=== PATIENT | female | born 1990 | race Caucasian/White ===

== ENCOUNTER 2019-10-03 10:55 | Emergency (ER) | payer BC, MEDICAID ==
[~2019-10-03] VITALS: Ht 170.2 cm; Wt 111.0 kg
[2019-10-03] MEDS ORDERED: fentaNYL/PF 50MCG/1 ML 2ML syringe IV ONE ×2 (11:30→17:10)
[2019-10-03] MEDS ORDERED: ondansetron/PF 4mg/2ml inj IV ONE ×5 (11:30→21:25)
[2019-10-03 11:36] LABS: BASOPHILS % (AUTO) 0.3 % (0-1); EOSINOPHILS % (AUTO) 0.4 % (0-6); HEMOGLOBIN 13.4 g/dl (12.0-16.0); LYMPHOCYTES # (AUTO) 1.6 X10'3 (1.1-4.8); LYMPHOCYTES % (AUTO) 12.6 % (21-51); MEAN CORPUSCULAR HGB CONC 33.5 g/dL (33.0-36.5); MEAN CORPUSCULAR VOLUME 92.4 FL (78-98); MEAN PLATELET VOLUME 6.9 FL (7.4-10.4); MONOCYTES # (AUTO) 0.5 X10'3 (0-0.9); MONOCYTES % (AUTO) 3.7 % (2-12); NEUTROPHILS # (AUTO) 10.4 X10'3 (1.8-7.7); PLATELET COUNT 332 X10'3 (140-440); RED BLOOD COUNT 4.34 X10'6 (4.20-5.60); RED CELL DISTRIBUTION WIDTH 14.4 % (11.5-14.5); WHITE BLOOD COUNT 12.5 X10'3 (4.5-11.0)
[2019-10-03] MEDS ORDERED: normal saline 1000ML IV soln IVB ONE (11:45)
[2019-10-03 11:48] LABS: CLARITY,URINE SLIGHTLY CLOUDY (Clear); COLOR,URINE AMBER (Yellow); GLUCOSE, URINE 100 mg/dl (Neg); KETONES,URINE 15 mg/dl (Neg); LEUKOCYTE ESTERASE ,URINE MODERATE (Neg); NITRITES, URINE POSITIVE (Neg); OCCULT BLOOD,URINE NEGATIVE (Neg); PROTEIN,URINE TRACE mg/dl (Neg); URINE HCG NEGATIVE (NEG); UROBILINOGEN,URINE >=8.0 E.U/dL (0.2-1.0)
[2019-10-03 11:49] LABS: UA COLLECTION TYPE CLN CATCH MIDSTREAM
[2019-10-03 11:50] LABS: ALANINE AMINOTRANSFERASE 176 U/L (12-78); ALBUMIN 3.1 G/DL (3.4-5.0); ALKALINE PHOSPHATASE 555 IU/L (46-116); ANION GAP 14 (8-16); ASPARTATE AMINO TRANSFERASE 137 U/L (10-37); BILIRUBIN,TOTAL 5.7 MG/DL (0.1-1.0); BLOOD UREA NITROGEN 9 MG/DL (7-18); BUN/CREATININE RATIO 11.4 (6.6-38.0); CALCIUM 9.4 MG/DL (8.5-10.1); CHLORIDE 101 MMOL/L (99-107); CREATININE 0.79 MG/DL (0.40-0.90); GLUCOSE 91 MG/DL (70-104); LIPASE 139 U/L (73-393); SODIUM 137 MMOL/L (135-145); TOTAL CARBON DIOXIDE 22.5 MMOL/L (24-32); eGFR 87 ML/MIN
[2019-10-03 11:51] LABS: ALBUMIN/GLOBULIN RATIO 0.8 (1.1-1.5); POTASSIUM 3.3 MMOL/L (3.5-5.1); TOTAL PROTEIN 7.2 G/DL (6.4-8.2)
[2019-10-03 12:03] LABS: SQUAMOUS EPITHELIAL CELL,UR MANY /LPF (FEW); WBC,URINE 20-30 /HPF (0-4)
[2019-10-03] MEDS: fentaNYL/PF 50MCG/1 ML 2ML syringe IV PRN ×4 (12:03→22:44)
[2019-10-03 12:05] LABS: BACTERIA,URINE 2+ /HPF (Neg); RBC,URINE 0-2 /HPF (0-2)
--- NOTE | 2019-10-03 12:27 | NUR ---
pt back from CT
[2019-10-03] MEDS ORDERED: CefTRIAXone 2gm/D5W 50ml 50 ML IV ONE (13:25)
--- NOTE | 2019-10-03 14:42 | NUR ---
PT UPDATED ON TRANSFER TO S.., STATES PAIN AND NAUSEA MUCH BETTER NOW. VSS
--- NOTE | 2019-10-03 16:32 | NUR ---
PATIENT HAS BEEN ACCEPTED AT [facility] ROOM [address]. ATTEMPTED TO ARRANGE TRANSPORT WITH [facility] HOWEVER THEY HAVE DECLINED DUE TO WEATHER CONDITIONS. [facility] HAS ALSO DECLINED. [facility] WILL KEEP TRANSPORT ON THEIR BOARD AND CALL IF A FIXED WING BECOMES AVAILABLE.
--- NOTE | 2019-10-03 16:44 | NUR ---
[facility] CALLED FOR TRANSPORT. THEY ARE CHECKING WITH [employer]AC[employer]ER THEN WILL CALL BACK WITH AN ETA.
--- NOTE | 2019-10-03 18:45 | NUR ---
pt hisband and son at bedside, baby crying, left with baby
--- NOTE | 2019-10-03 19:00 | NUR ---
pt crying after son and left, she states she is afraid that this was the last time she will see her son, I reassured her that they will find what is wrong with her when she is transported
[2019-10-03] MEDS ORDERED: LEVO25TA2 PO (19:59)
[2019-10-03 21:31] VITALS: BP 127/59
== END 2019-10-04 00:50 | disposition short-term general hospital (02) ==
LOC: ER 10:56
DX: K83.8 Other specified diseases of biliary tract (principal); N39.0 Urinary tract infection, site not specified; R74.0 Nonspecific elevation of levels of transaminase and lactic acid dehydrogenase [LDH]; R11.2 Nausea with vomiting, unspecified; R19.7 Diarrhea, unspecified; Z90.49 Acquired absence of other specified parts of digestive tract; Z98.890 Other specified postprocedural states; Z88.0 Allergy status to penicillin; Z88.8 Allergy status to other drugs, medicaments and biological substances; Z88.6 Allergy status to analgesic agent; Z91.040 Latex allergy status
CPT/HCPCS: 36415; 74176; 80053; 81001; 81025; 83605; 83690; 85025; 96361; 96365; 96375; 96376; 99285; J0696; J2405; J3010; J7030

== ENCOUNTER 2021-05-23 02:14 | Inpatient (IN) | payer BC, MEDICAID ==
[~2021-05-23] VITALS: Ht 170.2 cm; Wt 136.4 kg
[~2021-05-23 02:14] MED LIST: LEVO25TA2 PO
[2021-05-23] MEDS ORDERED: ibuprofen tablet 400 MG TABLET PO STA (02:25)
[2021-05-23] MEDS ORDERED: ondansetron/PF 4mg/2ml inj IV STA (02:25)
[2021-05-23] MEDS ORDERED: normal saline 1000ml 1,000 ML IVB ONE (02:25)
[2021-05-23] MEDS ORDERED: ibuprofen tablet 400 MG TABLET ONE (02:35)
[2021-05-23] MEDS ORDERED: metroNIDAZOLE-Flagyl 500mg/NS 100 ML IV STA (02:42)
[2021-05-23] MEDS ORDERED: normal saline 1000ml 1,000 ML IV ONE ×2 (02:45→03:55)
[2021-05-23] MEDS ORDERED: CefTRIAXone/D5W-Rocephin 1gm 50 ML IV ONE (02:45)
[2021-05-23 03:00] LABS: BASOPHILS % (AUTO) 0.1 % (0-1); EOSINOPHILS % (AUTO) 0 % (0-6); HEMATOCRIT 44.2 % (35.0-45.0); HEMOGLOBIN 14.6 g/dl (12.0-16.0); LYMPHOCYTES # (AUTO) 0.8 X10'3 (1.1-4.8); MEAN CORPUSCULAR HEMOGLOBIN 28.8 PG (27.0-31.0); MEAN CORPUSCULAR HGB CONC 33.1 g/dL (33.0-36.5); MEAN CORPUSCULAR VOLUME 87.1 FL (78-98); MEAN PLATELET VOLUME 6.3 FL (7.4-10.4); MONOCYTES # (AUTO) 0.8 X10'3 (0-0.9); MONOCYTES % (AUTO) 3.6 % (2-12); NEUTROPHILS # (AUTO) 19.3 X10'3 (1.8-7.7); NEUTROPHILS % (AUTO) 92.3 % (42-75); PLATELET COUNT 271 X10'3 (140-440); RED BLOOD COUNT 5.07 X10'6 (4.20-5.60); RED CELL DISTRIBUTION WIDTH 13.8 % (11.5-14.5); WHITE BLOOD COUNT 20.9 X10'3 (4.5-11.0)
[2021-05-23] MEDS ORDERED: iohexol 350MG/ML 100ml bottle IV ONE (03:09)
[2021-05-23 03:11] LABS: ALANINE AMINOTRANSFERASE 48 U/L (12-78); ALBUMIN 3.7 G/DL (3.4-5.0); ALBUMIN/GLOBULIN RATIO 0.8 (1.1-1.5); ALKALINE PHOSPHATASE 90 IU/L (46-116); ANION GAP 14 (8-16); ASPARTATE AMINO TRANSFERASE 34 U/L (10-37); BILIRUBIN,TOTAL 0.4 MG/DL (0.1-1.0); BLOOD UREA NITROGEN 10 MG/DL (7-18); BUN/CREATININE RATIO 7.2 (6.6-38.0); CALCIUM 8.9 MG/DL (8.5-10.1); CHLORIDE 99 MMOL/L (99-107); CREATININE 1.39 MG/DL (0.40-0.90); GLUCOSE 144 MG/DL (70-104); LIPASE < 50 U/L (73-393); POTASSIUM 3.8 MMOL/L (3.5-5.1); SODIUM 135 MMOL/L (135-145); TOTAL CARBON DIOXIDE 22.2 MMOL/L (24-32); TOTAL PROTEIN 8.4 G/DL (6.4-8.2); eGFR 45 ML/MIN
[2021-05-23 03:56] LABS: PLATELET ESTIMATE NORMAL; TOTAL CELLS COUNTED 100
[2021-05-23] MEDS ORDERED: ondansetron/PF 4mg/2ml inj IV ONE (04:15)
[2021-05-23 04:36] LABS: CLARITY,URINE CLOUDY (Clear); COLOR,URINE YELLOW (Yellow); GLUCOSE, URINE NEGATIVE (Neg); KETONES,URINE 15 mg/dl (Neg); LEUKOCYTE ESTERASE ,URINE NEGATIVE (Neg); NITRITES, URINE NEGATIVE (Neg); OCCULT BLOOD,URINE NEGATIVE (Neg); PROTEIN,URINE 100 mg/dl (Neg)
--- NOTE | 2021-05-23 04:37 | NUR ---
Pt recieved a total of 2 L NS per MD.
[2021-05-23 04:43] LABS: UA COLLECTION TYPE VOIDED
[2021-05-23 04:44] LABS: AMORPHOUS PHOSPHATES 3+; BACTERIA,URINE FEW /HPF (Neg); RBC,URINE 0-2 /HPF (0-2); SQUAMOUS EPITHELIAL CELL,UR FEW /LPF (FEW); WBC,URINE 0-4 /HPF (0-4)
[2021-05-23 04:45] LABS: URINE HCG NEGATIVE (NEG)
[2021-05-23] MEDS ORDERED: HYDROmorphone inj. 0.5 MG/0.5 ML DISP.SYRIN IV PRN (07:40)
[2021-05-23] MEDS ORDERED: mag hydrox/Alum hydrox/simeth 30ml oral suspension PO PRN (07:40)
[2021-05-23] MEDS ORDERED: HYDROcodone/acetaminophen 5mg/325mg tablet PO PRN (07:40)
[2021-05-23] MEDS ORDERED: magnesium 2GM in 50ml NS 50 ML IV PRN (07:40)
[2021-05-23] MEDS ORDERED: ipratropium/albuterol 3ml nebule NEB PRN (07:40)
[2021-05-23] MEDS ORDERED: potassium Cl 40MEQ/1/2NS 520ml 520 ML IV PRN ×2 (07:40)
[2021-05-23] MEDS ORDERED: magnesium 4gm in 100ml NS 100 ML IV PRN (07:40)
[2021-05-23] MEDS ORDERED: acetaminophen 325mg tablet PO PRN (07:40)
[2021-05-23] MEDS ORDERED: potassium Cl 20 mEq SR tablet PO PRN (07:40)
[2021-05-23] MEDS ORDERED: albuterol 2.5 MG/3 ML nebule NEB PRN (07:40)
[2021-05-23] MEDS ORDERED: magnesium hydroxide 30ml (MOM) UD suspension PO PRN (07:40)
[2021-05-23] MEDS: K and/or MAG REPLACEMENT MC SCH ×2 (08:00→20:59)
[2021-05-23] MEDS ORDERED: QUET50TA79 PO (08:18)
[2021-05-23] MEDS ORDERED: QUET400T54 PO (08:18)
[2021-05-23] MEDS ORDERED: LAMO50TA3 PO (08:18)
[2021-05-23] MEDS ORDERED: LAMO200T51 PO (08:18)
[2021-05-23] MEDS ORDERED: FLUV50TA3 PO (08:18)
[2021-05-23] MEDS: ondansetron/PF 4mg/2ml inj IV PRN ×2 (09:21→17:36)
[2021-05-23] MEDS: piperacillin/tazo 4.5gm/100ml 100 ML IV SCH ×2 (09:29→19:41)
[2021-05-23] MEDS: normal saline 1000ml 1,000 ML IV SCH ×2 (09:29→17:39)
[2021-05-23] MEDS: lamoTRIgine 100mg tablet PO SCH (11:17)
[2021-05-23] MEDS: lamoTRIgine 25mg tablet PO SCH (11:17)
[2021-05-23 17:20] VITALS: BP 122/72
--- NOTE | 2021-05-23 17:20 | NUR ---
Received report from Laney in ED. Patient came on gurney and was able to transfer ind to bed. Pain is A/Ox4 and is able to make her needs be known. Pain in RLQ 8/10 - constant, aching - will check for pain meds. Per reporting ED RN, she will contact pharmacy for 1600 Zosyn. Will cont to monitor.
[2021-05-23] MEDS: HYDROcodone/acetaminophen 10/325mg tab PO PRN (17:38)
--- NOTE | 2021-05-23 18:20 | NUR ---
Problems reprioritized. Patient report given, questions answered & plan of care reviewed with HENNY Toledo.
--- NOTE | 2021-05-23 18:28 | NUR ---
Patient in room ORTHO 4015. I have received report from Saundra INMAN and had the opportunity to ask questions and assume patient care.
[2021-05-23] MEDS: quetiapine fumarate ER 300mg tablet PO SCH (21:05)
[2021-05-23] MEDS: QUETIAPINE 50 MG TAB.SR.24H PO SCH (21:05)
[2021-05-23] MEDS: lactobacillus rhamnosus 10,000 MMU CELLS/CAPSULE PO SCH (21:05)
[2021-05-23] MEDS: fluvoxamine 25 MG tablet PO SCH (21:06)
[2021-05-23 22:00] VITALS: BP 115/71
[2021-05-23] MEDS: zolpidem 5mg tablet PO PRN (22:51)
[2021-05-24] MEDS: piperacillin/tazo 4.5gm/100ml 100 ML IV SCH ×3 (01:17→15:52)
[2021-05-24] MEDS: normal saline 1000ml 1,000 ML IV SCH ×3 (02:55→22:14)
[2021-05-24] MEDS: ondansetron/PF 4mg/2ml inj IV PRN ×2 (03:05→16:26)
--- NOTE | 2021-05-24 03:16 | NUR ---
Patient feeling warm and has temp of 101.1. Tylenol given but patient vomited right after administration. Zofran given and cold rags. Patient HR in the 130's. Waiting for nausea to resolve and will readministered Tylenol. Patient on IV fluids and abx running at this time.
[2021-05-24] MEDS ORDERED: ibuprofen 200mg tablet PO ONE (04:35)
--- NOTE | 2021-05-24 04:35 | NUR ---
temperature increased to 102.7 MD called and one time order ibuprofen.
[2021-05-24 05:22] VITALS: BP 122/68
--- NOTE | 2021-05-24 06:00 | NUR ---
Patient in room ORTHO 4015. I have received report from Paris INMAN and had the opportunity to ask questions and assume patient care.
[2021-05-24 06:30] LABS: BASOPHILS % (AUTO) 0.2 % (0-1); EOSINOPHILS % (AUTO) 0.3 % (0-6); HEMATOCRIT 34.1 % (35.0-45.0); HEMOGLOBIN 11.6 g/dl (12.0-16.0); LYMPHOCYTES # (AUTO) 1.4 X10'3 (1.1-4.8); LYMPHOCYTES % (AUTO) 10.9 % (21-51); MEAN CORPUSCULAR HEMOGLOBIN 29.1 PG (27.0-31.0); MEAN CORPUSCULAR HGB CONC 34.1 g/dL (33.0-36.5); MEAN CORPUSCULAR VOLUME 85.4 FL (78-98); MEAN PLATELET VOLUME 6.4 FL (7.4-10.4); MONOCYTES # (AUTO) 0.6 X10'3 (0-0.9); NEUTROPHILS # (AUTO) 10.6 X10'3 (1.8-7.7); NEUTROPHILS % (AUTO) 83.6 % (42-75); PLATELET COUNT 207 X10'3 (140-440); RED BLOOD COUNT 3.99 X10'6 (4.20-5.60); RED CELL DISTRIBUTION WIDTH 14.1 % (11.5-14.5); WHITE BLOOD COUNT 12.7 X10'3 (4.5-11.0)
--- NOTE | 2021-05-24 06:32 | NUR ---
Problems reprioritized. Patient report given, questions answered & plan of care reviewed with Cheyanne INMAN.
[2021-05-24 06:58] LABS: ALANINE AMINOTRANSFERASE 41 U/L (12-78); ALBUMIN 2.4 G/DL (3.4-5.0); ALBUMIN/GLOBULIN RATIO 0.7 (1.1-1.5); ALKALINE PHOSPHATASE 69 IU/L (46-116); ANION GAP 8 (8-16); ASPARTATE AMINO TRANSFERASE 32 U/L (10-37); BILIRUBIN,TOTAL 0.4 MG/DL (0.1-1.0); BLOOD UREA NITROGEN 6 MG/DL (7-18); BUN/CREATININE RATIO 7.1 (6.6-38.0); CALCIUM 7.3 MG/DL (8.5-10.1); CHLORIDE 106 MMOL/L (99-107); CREATININE 0.84 MG/DL (0.40-0.90); GLUCOSE 124 MG/DL (70-104); MAGNESIUM 2.1 MG/DL (1.5-2.4); POTASSIUM 3.1 MMOL/L (3.5-5.1); SODIUM 137 MMOL/L (135-145); TOTAL CARBON DIOXIDE 23.2 MMOL/L (24-32); TOTAL PROTEIN 5.9 G/DL (6.4-8.2); eGFR 80 ML/MIN
[2021-05-24] MEDS: lactobacillus rhamnosus 10,000 MMU CELLS/CAPSULE PO SCH ×2 (08:28→20:05)
[2021-05-24] MEDS: lamoTRIgine 100mg tablet PO SCH (08:29)
[2021-05-24] MEDS: potassium Cl 20 mEq SR tablet PO PRN ×4 (08:29→20:13)
[2021-05-24] MEDS: lamoTRIgine 25mg tablet PO SCH (08:30)
[2021-05-24] MEDS: K and/or MAG REPLACEMENT MC SCH ×2 (08:30→19:55)
[2021-05-24 11:00] VITALS: BP 103/63
--- NOTE | 2021-05-24 11:35 | NUR ---
Malnutrition Consult: Pt admit DX sepsis r/t PNA, acute renal failure secondary to dehydration, leukocytosis r/t sepsis, and hx abdomen pain w/ emesis 4 days [employer] per DO note. Hx cholecystectomy w/ small bowel resection 2008 and multiple ERCP's 2019 per DO note. Currently on clear liquids PO 50% first meal last night w/ no GI symptoms noted at this time per EMR. Pt has normal strength, no edema/wounds, pending scaled wt this admit, and appears WD/WN per ER note. At this time lacks minimum two malnutrition criteria. LBM 05/23. Will monitor for PO trends and ONS needs as diet advances this admit given DX. Rec: 1. advance diet as medically indicated to regular 2. monitor for ONS needs pending diet advancement and PO trends 3. routine bowel care 4. scaled wt this admit; subsequent weekly wts Addendum: 05/24/21 at [address] Amended: Links added.
[2021-05-24 17:00] VITALS: BP 104/71
--- NOTE | 2021-05-24 17:02 | NUR ---
PAGER ID: [phone] MESSAGE: Patient Ingrid Edge room 4012R is suffering from nausea and Zofran has been ineffective. Please advise. Cheyanne Ext [phone]
[2021-05-24] MEDS ORDERED: proCHLORperazine 10mg tablet PO PRN (17:05)
--- NOTE | 2021-05-24 18:27 | NUR ---
Problems reprioritized. Patient report given, questions answered & plan of care reviewed with Barbara INMAN .
[2021-05-24] MEDS: HYDROcodone/acetaminophen 10/325mg tab PO PRN (19:06)
[2021-05-24] MEDS: zolpidem 5mg tablet PO PRN (20:05)
[2021-05-24] MEDS: quetiapine fumarate ER 300mg tablet PO SCH (20:05)
[2021-05-24] MEDS: QUETIAPINE 50 MG TAB.SR.24H PO SCH (20:06)
[2021-05-24] MEDS: fluvoxamine 25 MG tablet PO SCH (20:06)
[2021-05-24 22:00] VITALS: BP 94/53
[2021-05-25] MEDS: piperacillin/tazo 4.5gm/100ml 100 ML IV SCH ×3 (00:09→16:00)
[2021-05-25 06:00] VITALS: BP 110/74
[2021-05-25 06:07] LABS: BASOPHILS % (AUTO) 0.2 % (0-1); EOSINOPHILS # (AUTO) 0.2 X10'3 (0-0.9); EOSINOPHILS % (AUTO) 1.4 % (0-6); HEMATOCRIT 35.4 % (35.0-45.0); HEMOGLOBIN 11.6 g/dl (12.0-16.0); LYMPHOCYTES # (AUTO) 1.9 X10'3 (1.1-4.8); LYMPHOCYTES % (AUTO) 16.5 % (21-51); MEAN CORPUSCULAR HEMOGLOBIN 28.5 PG (27.0-31.0); MEAN CORPUSCULAR HGB CONC 32.7 g/dL (33.0-36.5); MEAN CORPUSCULAR VOLUME 87.2 FL (78-98); MEAN PLATELET VOLUME 6.7 FL (7.4-10.4); MONOCYTES # (AUTO) 0.8 X10'3 (0-0.9); MONOCYTES % (AUTO) 6.8 % (2-12); NEUTROPHILS # (AUTO) 8.9 X10'3 (1.8-7.7); NEUTROPHILS % (AUTO) 75.1 % (42-75); PLATELET COUNT 225 X10'3 (140-440); RED BLOOD COUNT 4.06 X10'6 (4.20-5.60); RED CELL DISTRIBUTION WIDTH 14.2 % (11.5-14.5); WHITE BLOOD COUNT 11.8 X10'3 (4.5-11.0)
[2021-05-25 06:23] LABS: ALANINE AMINOTRANSFERASE 32 U/L (12-78); ALBUMIN 2.2 G/DL (3.4-5.0); ALBUMIN/GLOBULIN RATIO 0.6 (1.1-1.5); ALKALINE PHOSPHATASE 76 IU/L (46-116); ANION GAP 7 (8-16); ASPARTATE AMINO TRANSFERASE 18 U/L (10-37); BILIRUBIN,TOTAL 0.2 MG/DL (0.1-1.0); BLOOD UREA NITROGEN 4 MG/DL (7-18); BUN/CREATININE RATIO 5.6 (6.6-38.0); CALCIUM 7.4 MG/DL (8.5-10.1); CHLORIDE 106 MMOL/L (99-107); CREATININE 0.72 MG/DL (0.40-0.90); GLUCOSE 91 MG/DL (70-104); MAGNESIUM 2.3 MG/DL (1.5-2.4); POTASSIUM 3.6 MMOL/L (3.5-5.1); SODIUM 138 MMOL/L (135-145); TOTAL CARBON DIOXIDE 24.6 MMOL/L (24-32); TOTAL PROTEIN 5.8 G/DL (6.4-8.2); eGFR > 90 ML/MIN
--- NOTE | 2021-05-25 06:41 | NUR ---
Problems reprioritized. Patient report given, questions answered & plan of care reviewed with HENNY Lea.
--- NOTE | 2021-05-25 06:44 | NUR ---
Patient in room ORTHO 4015B. I have received report from HENNY COVINGTON and had the opportunity to ask questions and assume patient care.
[2021-05-25] MEDS: K and/or MAG REPLACEMENT MC SCH (07:46)
[2021-05-25] MEDS: lactobacillus rhamnosus 10,000 MMU CELLS/CAPSULE PO SCH (07:51)
[2021-05-25] MEDS: lamoTRIgine 100mg tablet PO SCH (07:52)
[2021-05-25] MEDS: lamoTRIgine 25mg tablet PO SCH (07:52)
[2021-05-25] MEDS: ondansetron/PF 4mg/2ml inj IV PRN (07:57)
[2021-05-25] MEDS: normal saline 1000ml 1,000 ML IV SCH (08:00)
[2021-05-25] MEDS: HYDROcodone/acetaminophen 10/325mg tab PO PRN (09:32)
[2021-05-25 10:00] VITALS: BP 123/82
[2021-05-25] MEDS ORDERED: PROC10TA10 PO (11:53)
[2021-05-25] MEDS ORDERED: POTA20TA19 PO (11:53)
[2021-05-25] MEDS ORDERED: LEVO750T46 PO (11:54)
--- NOTE | 2021-05-25 13:19 | NUR ---
Page Sent PAGER ID: [phone] MESSAGE: LUTHER [phone] RE: YULISSA BERNSTEIN [phone] PT REQUESTED PRESCRIPTION FOR PAIN MEDS ON D/C PLEASE. THANK YOU!
[2021-05-25] MEDS ORDERED: HYDR-3964 PO (14:02)
--- NOTE | 2021-05-25 17:03 | NUR ---
D/C INSTRUCTIONS GIVEN, QUESTIONS ANSWERED. BELONGINGS GATHERED AND SENT WITH PT. IV D/C'D, CANNULA INTACT, NO COMPLICATIONS. D/C'D PT IN STABLE CONDITION TO HOME IN PRIVATE VEHICLE ACCOMPANIED BY FRIEND. PT LEFT FLOOR AT 1650
== END 2021-05-25 16:50 | disposition home or self-care (01) | DRG 871 ==
LOC: ER 02:14 → ED HOLD 07:39 → ORTHO 4S 17:07
PROVIDERS: ADMIT Family Medicine; ATTEND Family Medicine
PROC: B32T1ZZ Computerized Tomography (CT Scan) of Left Pulmonary Artery using Low Osmolar Contrast (ICD-10-PCS; principal; 2021-05-23)
PROC: B3201ZZ Computerized Tomography (CT Scan) of Thoracic Aorta using Low Osmolar Contrast (ICD-10-PCS; 2021-05-23)
PROC: B32S1ZZ Computerized Tomography (CT Scan) of Right Pulmonary Artery using Low Osmolar Contrast (ICD-10-PCS; 2021-05-23)
PROC: BW211ZZ Computerized Tomography (CT Scan) of Abdomen and Pelvis using Low Osmolar Contrast (ICD-10-PCS; 2021-05-23)
DX: A40.0 Sepsis due to streptococcus, group A (principal); J18.9 Pneumonia, unspecified organism; N17.0 Acute kidney failure with tubular necrosis; Z68.42 Body mass index [BMI] 45.0-49.9, adult; E86.0 Dehydration; F31.9 Bipolar disorder, unspecified; K74.00 Hepatic fibrosis, unspecified; N95.1 Menopausal and female climacteric states; R63.0 Anorexia; R65.20 Severe sepsis without septic shock; Z60.2 Problems related to living alone; Z20.822 Contact with and (suspected) exposure to COVID-19; E87.6 Hypokalemia; E66.01 Morbid (severe) obesity due to excess calories; Z82.49 Family history of ischemic heart disease and other diseases of the circulatory system; Z82.5 Family history of asthma and other chronic lower respiratory diseases; Z83.3 Family history of diabetes mellitus; Z90.49 Acquired absence of other specified parts of digestive tract; Z88.0 Allergy status to penicillin; Z88.8 Allergy status to other drugs, medicaments and biological substances; Z88.6 Allergy status to analgesic agent; Z91.040 Latex allergy status; Z79.899 Other long term (current) drug therapy
CPT/HCPCS: 36415; 71045; 71275; 74177; 80053; 81001; 81025; 83605; 83690; 83735; 84145; 84443; 85007; 85025; 85610; 87040; 87077; 87081; 87186; 87635; 93005; 94760; 96365; 96368; 96375; 97116; 97161; 97530; 99285; C9803; G0378; J0696; J2405; J2543; J3490; J7030; Q0164; Q9967

== ENCOUNTER 2022-12-11 20:18 | Emergency (ER) | payer BC, MEDICAID ==
[~2022-12-11] VITALS: Ht 170.2 cm; Wt 123.0 kg
[~2022-12-11 20:18] MED LIST changes: +FLUV50TA24 PO; +HYDR-3964 PO; +LAMO200T51 PO; +LAMO50TA3 PO; -LEVO25TA2 PO; +LEVO750T68 PO; +POTA-207 PO; +PROC10TA10 PO; +QUET400T54 PO; +QUET50TA94 PO
[2022-12-11 20:43] VITALS: BP 108/71
[2022-12-11] MEDS ORDERED: dexamethasone sod phosphate 10mg/ml inj PO STA (21:34)
[2022-12-11] MEDS ORDERED: amox tr/potassium clavulanate 875/125mg TAB PO ONE (21:35)
[2022-12-11] MEDS ORDERED: AMOX-580 PO (21:38)
== END 2022-12-11 22:15 | disposition home or self-care (01) ==
LOC: ER 20:18
DX: K04.7 Periapical abscess without sinus (principal); F31.9 Bipolar disorder, unspecified; Z88.0 Allergy status to penicillin; Z88.8 Allergy status to other drugs, medicaments and biological substances; Z88.6 Allergy status to analgesic agent; Z91.040 Latex allergy status
CPT/HCPCS: 99283; J1100

== ENCOUNTER 2022-12-30 08:47 | Day surgery (SDC) | payer BC, MEDICAID ==
[2022-12-23 14:28] LABS: BASOPHILS # (AUTO) 0.1 X10'3 (0-0.2); BASOPHILS % (AUTO) 0.5 % (0-1); EOSINOPHILS # (AUTO) 0.2 X10'3 (0-0.9); EOSINOPHILS % (AUTO) 1.6 % (0-6); LYMPHOCYTES # (AUTO) 2.8 X10'3 (1.1-4.8); LYMPHOCYTES % (AUTO) 26.4 % (21-51); MEAN CORPUSCULAR HEMOGLOBIN 28.9 PG (27.0-31.0); MEAN CORPUSCULAR HGB CONC 32.9 g/dL (33.0-36.5); MEAN PLATELET VOLUME 6.4 FL (7.4-10.4); MONOCYTES # (AUTO) 0.9 X10'3 (0-0.9); MONOCYTES % (AUTO) 8.1 % (2-12); NEUTROPHILS # (AUTO) 6.8 X10'3 (1.8-7.7); NEUTROPHILS % (AUTO) 63.4 % (42-75); PRE OP HEMATOCRIT 40.1 % (35.0-45.0); PRE OP HEMOGLOBIN 13.2 g/dL (12.0-16.0); PRE OP PLATELET COUNT 330 X10'3 (140-440); RED BLOOD COUNT 4.56 X10'6 (4.20-5.60); RED CELL DISTRIBUTION WIDTH 14.4 % (11.5-14.5)
[2022-12-23 14:44] LABS: CLARITY,URINE CLOUDY (Clear); COLOR,URINE YELLOW (Yellow); GLUCOSE, URINE NEGATIVE (Neg); KETONES,URINE NEGATIVE (Neg); LEUKOCYTE ESTERASE ,URINE NEGATIVE (Neg); NITRITES, URINE NEGATIVE (Neg); OCCULT BLOOD,URINE NEGATIVE (Neg); PROTEIN,URINE NEGATIVE (Neg); UROBILINOGEN,URINE 0.2 E.U/dL (0.2-1.0)
[2022-12-23 14:51] LABS: SQUAMOUS EPITHELIAL CELL,UR MANY /LPF (FEW); UA COLLECTION TYPE CLN CATCH MIDSTREAM
[2022-12-23 14:52] LABS: MUCUS STRANDS MODERATE /LPF (Neg)
[2022-12-23 14:52] LABS: ALBUMIN 3.7 G/DL (3.4-5.0); ALBUMIN/GLOBULIN RATIO 0.9 (1.1-1.5); ALKALINE PHOSPHATASE 94 IU/L (46-116); BLOOD UREA NITROGEN 6 MG/DL (7-18); BUN/CREATININE RATIO 7.2 (6.6-38.0); CALCIUM 9.4 MG/DL (8.5-10.1); CHLORIDE 103 MMOL/L (99-107); CREATININE 0.83 MG/DL (0.40-0.90); PRE OP ALT 31 U/L (30-65); PRE OP ANION GAP 7 (8-16); PRE OP AST 19 U/L (10-37); PRE OP BILIRUB, TOTAL 0.3 MG/DL (0.0-1.0); PRE OP GLUCOSE 95 MG/DL (70-104); PRE OP POTASSIUM 3.9 MMOL/L (3.4-5.1); PRE OP SODIUM 137 MMOL/L (135-145); TOTAL CARBON DIOXIDE 26.7 MMOL/L (24-32); TOTAL PROTEIN 7.6 G/DL (6.4-8.2); eGFR 81 ML/MIN
[2022-12-23 14:53] LABS: BACTERIA,URINE FEW /HPF (Neg); RBC,URINE 0-2 /HPF (0-2); WBC,URINE 0-4 /HPF (0-4); YEAST MANY /HPF (NEGATIVE)
[2022-12-23 15:12] LABS: HCG SERUM QL NEGATIVE
[2022-12-30] VITALS (13 sets, daily range): BP systolic 101–132; BP diastolic 57–81
[~2022-12-30] VITALS: Ht 170.2 cm; Wt 138.7 kg
[~2022-12-30 08:47] MED LIST changes: +BREX1TAB PO; -HYDR-3964 PO; -LEVO750T68 PO; -POTA-207 PO; -PROC10TA10 PO; -QUET50TA94 PO; +VORT10TA PO; +famotidine 20mg tablet PO ONE; +ringers solution, lacted 1,000 ML IV SCH
[2022-12-30] MEDS ORDERED: LIDOcaine 2% (20mg/ml) 5ml vial ONE (11:00)
[2022-12-30] MEDS ORDERED: sevoflurane 250ml liquid IH ONE (11:00)
[2022-12-30] MEDS ORDERED: dexamethasone sod phosphate 10mg/ml inj ONE (11:00)
[2022-12-30] MEDS ORDERED: sugammadex 200mg/2ml injection IV ONE (11:02)
[2022-12-30] MEDS ORDERED: fentaNYL/PF 50MCG/1 ML 2ML syringe ONE (11:03)
[2022-12-30] MEDS ORDERED: midazolam 1 mg/ML 2ml injection ONE (11:03)
[2022-12-30] MEDS ORDERED: propofol inj 20 ML IV ONE (11:03)
[2022-12-30] MEDS ORDERED: ondansetron/PF 4mg/2ml inj ONE (11:04)
[2022-12-30] MEDS ORDERED: rocuronium 10mg/ml inj IV ONE (11:04)
[2022-12-30] MEDS ORDERED: BUPIVAcaine 0.5% inj/PF 30 ML ONE (11:12)
[2022-12-30] MEDS ORDERED: labetalol 20mg/4ml (5mg/ml) syringe IV ONE (11:24)
[2022-12-30] MEDS ORDERED: morphine 4 MG/ML inj SYRINge IV PRN (11:40)
[2022-12-30] MEDS ORDERED: hydrALAZINE 20mg/ml inj. IV PRN (11:40)
[2022-12-30] MEDS ORDERED: labetalol 20mg/4ml (5mg/ml) syringe IV PRN (11:40)
[2022-12-30] MEDS ORDERED: morphine 2 MG/ML inj. syringe IV PRN (11:40)
[2022-12-30] MEDS ORDERED: ringers solution, lacted 1,000 ML IV SCH (11:40)
[2022-12-30] MEDS ORDERED: ondansetron/PF 4mg/2ml inj IV PRN (11:40)
[2022-12-30] MEDS ORDERED: fentaNYL/PF 50MCG/1 ML 2ML syringe IV PRN ×2 (11:40)
[2022-12-30] MEDS ORDERED: BUPIVAcaine 0.5% inj/PF 30 ml vial IJ ONE (11:47)
--- NOTE | 2022-12-30 12:30 | NUR ---
Received from OR via [facility], accompanied by Anesthesiologist DR ALCANTARA and report given by Anesthesiologist. PT IS STILL SLEEPY AND. VSS. , PT RECEIVING 8L O2 TO MASK AND TOLERATING WELL, O2 SAT > 96%. PT RR IS 14-17. WILL TITRATE O2 DOWN PT TOLERATES. PT HAS 20G PIV TO RIGHT HAND WITH LR INFUSING @ 100ML/HR ORDERED. PT HAS 4 SMALL INCISION SITES AT BILATERAL LOWER ABD THAT ARE C/D/I, SHAYLA PAD IS C/D/I. PT RESTING COMFORTABLY. WILL CONTINUE TO ASSESS. Addendum: 12/30/22 at 1248 by Mikal Soto RN Amended: Links added.
--- NOTE | 2022-12-30 14:20 | NUR ---
ALL DISCHARGE CRITERIA HAS BEEN MET. VSS, PAIN AT A TOLERABLE LEVEL, VOIDING AND ABLE TO SAFELY AMBULATE AND TRANSFER SELF. IV TAKEN OUT WITHOUT ANY COMPLICATIONS. ALL DISCHARGE INSTRUCTIONS COVERED WITH PATIENT AND ALL QUESTIONS ANSWERED. PATIENT TAKEN OUT VIA WHEELCHAIR WITH ALL BELONGINGS TO PERSONAL VEHICLE WHERE FRIEND DROVE PATIENT HOME. Addendum: 12/30/22 at 1436 by Mikal Soto RN Amended: Links added.
== END 2022-12-30 14:20 | disposition home or self-care (01) ==
LOC: PAS 08:47
PROVIDERS: ATTEND Obstetrics & Gynecology
DX: Z30.2 Encounter for sterilization (principal); N83.8 Other noninflammatory disorders of ovary, fallopian tube and broad ligament; E66.01 Morbid (severe) obesity due to excess calories; Z68.42 Body mass index [BMI] 45.0-49.9, adult; F31.9 Bipolar disorder, unspecified; I10 Essential (primary) hypertension; K21.9 Gastro-esophageal reflux disease without esophagitis; K76.0 Fatty (change of) liver, not elsewhere classified; Z88.0 Allergy status to penicillin; Z88.8 Allergy status to other drugs, medicaments and biological substances; Z91.040 Latex allergy status; Z79.899 Other long term (current) drug therapy; F12.90 Cannabis use, unspecified, uncomplicated; Z98.890 Other specified postprocedural states; Z90.49 Acquired absence of other specified parts of digestive tract; Z80.0 Family history of malignant neoplasm of digestive organs; Z80.1 Family history of malignant neoplasm of trachea, bronchus and lung; Z80.49 Family history of malignant neoplasm of other genital organs
CPT/HCPCS: 36415; 58670; 80053; 81001; 82948; 84703; 85025; 86885; 86900; 86901; 93005; J1100; J2250; J2270; J2405; J2704; J3010; J3490; J7030; J7120; S0020; Z7506; Z7508; Z7512; A4618

== ENCOUNTER 2023-11-27 14:19 | Emergency (ER) | payer BC, MEDICAID ==
[~2023-11-27] VITALS: Ht 170.2 cm; Wt 134.1 kg
[~2023-11-27 14:19] MED LIST changes: -famotidine 20mg tablet PO ONE; -ringers solution, lacted 1,000 ML IV SCH
[2023-11-27 15:28] VITALS: BP 132/90; PULSE 81; RESP 18; O2SAT 98
[2023-11-27 16:26] LABS: HEMOGLOBIN 13.9 g/dl (12.0-16.0); MEAN CORPUSCULAR HGB CONC 32.7 g/dL (33.0-36.5); MEAN PLATELET VOLUME 6.6 FL (7.4-10.4)
[2023-11-27 16:27] LABS: BASOPHILS % (AUTO) 0.4 % (0-1); EOSINOPHILS # (AUTO) 0.1 X10'3 (0-0.9); EOSINOPHILS % (AUTO) 0.9 % (0-6); HEMATOCRIT 42.4 % (35.0-45.0); LYMPHOCYTES # (AUTO) 1.2 X10'3 (1.1-4.8); LYMPHOCYTES % (AUTO) 16.1 % (21-51); MEAN CORPUSCULAR HEMOGLOBIN 29.4 PG (27.0-31.0); MEAN CORPUSCULAR VOLUME 89.9 FL (78-98); MONOCYTES # (AUTO) 0.9 X10'3 (0-0.9); MONOCYTES % (AUTO) 12.5 % (2-12); NEUTROPHILS # (AUTO) 5.1 X10'3 (1.8-7.7); NEUTROPHILS % (AUTO) 70.1 % (42-75); PLATELET COUNT 282 X10'3 (140-440); RED BLOOD COUNT 4.72 X10'6 (4.20-5.60); RED CELL DISTRIBUTION WIDTH 13.8 % (11.5-14.5); WHITE BLOOD COUNT 7.2 X10'3 (4.5-11.0)
[2023-11-27 16:33] LABS: ALANINE AMINOTRANSFERASE 42 U/L (12-78); ALBUMIN 3.6 G/DL (3.4-5.0); ALBUMIN/GLOBULIN RATIO 0.9 (1.1-1.5); ALKALINE PHOSPHATASE 93 IU/L (46-116); AMYLASE 45 U/L (25-115); ANION GAP 8 (8-16); ASPARTATE AMINO TRANSFERASE 32 U/L (10-37); BILIRUBIN,TOTAL 0.3 MG/DL (0.1-1.0); BLOOD UREA NITROGEN 4 MG/DL (7-18); BUN/CREATININE RATIO 4.3 (10.0-20.0); C-REACTIVE PROTEIN 1.62 MG/DL (0.0-0.5); CALCIUM 8.7 MG/DL (8.5-10.1); CHLORIDE 102 MMOL/L (99-107); CREATININE 0.92 MG/DL (0.40-0.90); GLUCOSE 92 MG/DL (70-104); LACTATE DEHYDROGENASE 209 U/L (81-234); LIPASE 30 U/L (16-77); POTASSIUM 3.6 MMOL/L (3.5-5.1); SODIUM 137 MMOL/L (135-145); TOTAL PROTEIN 7.5 G/DL (6.4-8.2); eCRCL 86 ML/MIN; eGFR 71 ML/MIN
[2023-11-27 16:34] LABS: ETHANOL < 10 MG/DL (<10)
[2023-11-27 16:46] LABS: URINE AMPHETAMINE SCREEN POSITIVE (Neg); URINE BARBITUATE SCREEN NEGATIVE (Neg); URINE BENZODIAZEPINES SCREEN NEGATIVE (Neg); URINE CANNABINOID SCREEN POSITIVE (Neg); URINE COCAINE SCREEN NEGATIVE (Neg); URINE METHADONE SCREEN NEGATIVE (Neg); URINE OPIATE SCREEN NEGATIVE (Neg); URINE PHENCYCLIDINE SCREEN NEGATIVE (Neg)
[2023-11-27 17:05] LABS: APTT 27 SECONDS (22-32); D-DIMER 0.54 MG/L FEU (0-0.50); FIBRINOGEN 430 MG/DL (177-424); PROTHROMBIN TIME 10.3 SECONDS (9.0-12.0)
== END 2023-11-27 18:17 | disposition home or self-care (01) ==
LOC: ER 14:20
DX: U07.1 COVID-19 (principal); F31.9 Bipolar disorder, unspecified; Z88.0 Allergy status to penicillin; Z88.8 Allergy status to other drugs, medicaments and biological substances; Z79.899 Other long term (current) drug therapy
CPT/HCPCS: 36415; 80053; 80305; 80320; 82150; 83615; 83690; 83735; 84145; 85025; 85379; 85384; 85610; 85730; 86140; 87811; 99283